=== PATIENT | female | born 1965 | race Caucasian/White ===

== ENCOUNTER → 2017-09-01 | Outpatient (CLI) | payer BC ==
[2017-09-01 13:52] LABS: BASOPHILS % (AUTO) 0 % (0-10); EOSINOPHILS # (AUTO) 0.1 10^3/uL (0.0-0.3); EOSINOPHILS % (AUTO) 2 % (0-10); LYMPHOCYTES % (AUTO) 38 % (12-44); MEAN CORPUSCULAR HEMOGLOBIN 30 PG (25-34); MEAN CORPUSCULAR HGB CONC 33 G/DL (32-36); MEAN CORPUSCULAR VOLUME 91 FL (80-99); MEAN PLATELET VOLUME 9.6 FL (7.4-10.4); MONOCYTES # (AUTO) 0.4 X 10^3 (0.0-1.0); MONOCYTES % (AUTO) 7 % (0-12); NEUTROPHILS # (AUTO) 2.8 X 10^3 (1.8-7.8); NEUTROPHILS % (AUTO) 53 % (42-75); PLATELET COUNT 274 10^3/uL (130-400); RED BLOOD COUNT 4.09 10^6/uL (4.35-5.85); RETICULOCYTE % 0.97 % (0.50-2.40); WHITE BLOOD COUNT 5.4 10^3/uL (4.3-11.0)
[2017-09-01 13:53] LABS: PATH WILL NEED TO REVIEW SMEAR PATH TO REVIEW
[2017-09-01 14:17] LABS: EOSINOPHILS % (MANUAL) 1 %; LYMPHOCYTES % (MANUAL) 33 %; NEUTROPHILS % (MANUAL) 58 %
== END ==
LOC: LAB 13:22
PROVIDERS: ATTEND Nurse Practitioner Family
DX: D72.819 Decreased white blood cell count, unspecified (principal)
CPT/HCPCS: 36415; 85007; 85027; 85045

== ENCOUNTER → 2019-01-19 | Outpatient (CLI) | payer MEDICAID, OTHER ==
--- NOTE | 2019-01-19 09:39 | Diagnostic Imaging Report ---
INDICATION: Chronic low back pain and left flank pain. TIME OF EXAM: 09:19 a.m. No prior studies are available for comparison. Curvature and alignment is within normal limits. Vertebral body heights are maintained. No acute compression fracture seen. There is some degenerative disc disease at L4-L5 level with mild disc space narrowing and marginal spurring. IMPRESSION: Lumbar spondylosis. No acute bony abnormality is detected. Dictated by: Dictated on workstation # [id number]
== END ==
LOC: RAD 08:55
PROVIDERS: ATTEND Nurse Practitioner Family
DX: M47.816 Spondylosis without myelopathy or radiculopathy, lumbar region (principal); R10.9 Unspecified abdominal pain
CPT/HCPCS: 72100

== ENCOUNTER → 2020-03-29 | Outpatient (CLI) | payer OTHER | LOC: LABNPT 07:02 | PROVIDERS: ATTEND Family Medicine | DX: R06.02 Shortness of breath (principal); R05 Cough; R53.83 Other fatigue; R09.89 Other specified symptoms and signs involving the circulatory and respiratory systems; Z20.828 Contact with and (suspected) exposure to other viral communicable diseases | CPT/HCPCS: 87635 ==